=== PATIENT | female | born 1985 | race African-American/Black ===

== ENCOUNTER 2017-05-16 13:24 | Emergency (ER) ==
[2017-05-16 13:33] VITALS: TEMP 97.5; BMI 28.3
[2017-05-16] MEDS ORDERED: SODIUM CHLORIDE 1,000 ML IV STA (13:42)
--- NOTE | 2017-05-16 13:48 | ED.PDOC ---
General ED Provider: Dr. CONNIE REMY Chief Complaint: Dizziness Stated Complaint: Pateint states she started feeling bad the last two days. 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 states her hands were shaking. states her blood pressure was checked and it was high ( 140s systolic) . Also c/o headache. Time Seen by Physician: 13:38 Mode of Arrival: Walk-In Information Source: Patient Nursing and Triage Documentation Reviewed and Agree: Yes Review of Systems - Review Of Systems Constitutional: Reports: No symptoms Eyes: Reports: No symptoms Ears, Nose, Mouth, Throat: Reports: No symptoms Respiratory: Reports: No symptoms Cardiac: Reports: Lightheadedness GI: Reports: No symptoms : Reports: No symptoms Musculoskeletal: Reports: No symptoms Skin: Reports: No symptoms Neurological: Reports: Anxiety, Headache Endocrine: Reports: No symptoms Hematologic/Lymphatic: Reports: No symptoms All Other Systems: Reviewed and Negative Past Medical History - Past Medical History Endocrine: Reports: None Cardiovascular: Reports: None Respiratory: Reports: None Hematological: Reports: None Gastrointestinal: Reports: None Genitourinary: Reports: None Neuro/Psych: Reports: Depression Musculoskeletal: Reports: Arthritis, Back Pain Cancer: Reports: None Last Menstrual Period: 05/09/17 - Surgical History General Surgical History: Reports: None - Family History Family History: Reports: None - Social History Smoking Status: Never smoker Hx Substance Use: No Alcohol Screening: None Physical Exam - Physical Exam Appearance: Ill-appearing Ill-appearing: Mild Eyes: ALLEN, EOMI, Conjunctiva clear ENT: Ears normal, Nose normal, Oropharynx normal Neck: Supple Respiratory: Airway patent, Breath sounds clear, Breath sounds equal, Respirations nonlabored Cardiovascular: RRR, Pulses normal, No rub, No murmur GI/: Soft, Nontender, No masses, Bowel sounds normal, No Organomegaly Musculoskeletal: Normal strength, ROM intact, No edema, No calf tenderness Skin: Warm, Dry, Normal color Neurological: Sensation intact, Motor intact, Reflexes intact, Cranial nerves intact, Alert, Oriented Psychiatric: Anxious Interpretation - Radiology Interpretation Radiology Interpretation By: Radiologist Radiology Results: Negative Exam Interpreted: CT Scan (Head ) - EKG Interpretation Time of EKG #1: 13:42 Rate: Normal Rhythm: Sinus Ectopy: PVCs (occasional ) [place]: [place] Interpretation: sinus with occ PVC's Critical Care Note - Critical Care Note Total Time (mins): 10 Course - Course Hematology/Chemistry: 05/16/17 13:45 05/16/17 13:45 Orders, Labs, Meds: Lab Review 05/16/17 05/16/17 13:45 13:51 WBC 9.44 RBC 4.63 Hgb 12.3 Hct 38.0 MCV 82.1 MCH 26.6 L MCHC 32.4 RDW Coeff of Bill 14.4 Plt Count 358 Immature Gran % (Auto) 0.2 Neut % (Auto) 66.8 Lymph % (Auto) 24.0 [place] % (Auto) 7.3 Eos % (Auto) 1.0 Baso % (Auto) 0.7 Immature Gran # (Auto) 0.0 Neut # 6.3 Lymph # 2.3 [place] # 0.7 Eos # 0.1 Baso # 0.1 Sodium 140 Potassium 3.5 Chloride 107 Carbon Dioxide 25 Anion Gap 11.5 BUN 6 L Creatinine 0.74 Estimated GFR (MDRD) 93.00 BUN/Creatinine Ratio 8.10 Glucose 97 Calcium 8.8 Total Bilirubin 0.23 AST 14 L ALT 8 L Alkaline Phosphatase 71 Troponin I < 0.0100 Total Protein 7.1 Albumin 3.7 Globulin 3.4 Albumin/Globulin Ratio 1.09 Serum , Qual Negative Urine Color Yellow Urine Clarity Clear Urine pH 7.0 Ur Specific Rose 1.020 Urine Protein Negative Urine Glucose (UA) Negative Urine Ketones Negative Urine Blood Negative Urine Nitrite Negative Urine Bilirubin Negative Urine Urobilinogen 0.2 Ur Leukocyte Esterase Negative Orders Category Date Time Status EKG-(ED ONLY) Stat CARDIO 05/16/17 13:37 Completed ED IV/MEDIPORT/POWERPORT .ONCE EMERGENCY 05/16/17 13:42 Active ED ORTHOSTATIC VITAL SIGNS .ONCE EMERGENCY 05/16/17 13:37 Active CBC W/ AUTO DIFF Stat LAB 05/16/17 13:45 Completed COMPREHENSIVE METABOLIC PANEL Stat LAB 05/16/17 13:45 Completed SERUM Stat LAB 05/16/17 13:45 Completed TROPONIN I Stat LAB 05/16/17 13:45 Completed URINALYSIS C & S IF INDICATED Stat LAB 05/16/17 13:51 Completed 0.9 % Sodium Chloride [Saline Flush] MEDS 05/16/17 13:42 Discontinued 1 syr IVF PRN PRN Sodium Chloride 0.9% [Sodium Chloride] 1,000 ml MEDS 05/16/17 13:[address] HEAD W/O CONTRAST Stat RADS 05/16/17 13:41 Completed Medications Discontinued Medications Generic Name Dose Route Start Last Admin Trade Name Freq PRN Reason Stop Dose Admin Sodium Chloride 1,000 mls @ 1,000 mls/hr 05/16/17 13:42 05/16/17 14:02 Sodium Chloride IV 05/16/17 14:41 1,000 mls/hr BOLUS STA Administration Sodium Chloride 1 syr 05/16/17 13:42 05/16/17 14:02 Saline Flush IVF 1 syr PRN PRN Administration To flush IV Vital Signs: Temp Pulse Resp BP Pulse Ox 05/16/17 14:55 71 16 137/79 100 05/16/17 14:06 79 118/92 H 05/16/17 13:25 97.5 F L 85 16 149/91 H 99 Departure - Departure Time of Disposition: 14:46 Disposition: HOME SELF-CARE Discharge Problem: Dizziness Instructions: Lightheadedness (ED), Dizziness (ED) Condition: Good Pt referred to PMD for follow-up: Yes Additional Instructions: Push fluids Follow up with PCP in 3 days Allergies/Adverse Reactions: Allergies No Known Allergies Allergy (Unverified 05/16/17 13:29) Home Medications: Ambulatory Orders Trazodone HCl 75 mg PO BEDTIME PRN 05/10/16 Alprazolam 0.25 mg PO BID PRN 05/16/17 Gabapentin 100 mg PO TID 05/16/17 Hydrocodone/Acetaminophen [[place] 5-325 Tablet] 1 tab PO Q8H PRN 05/16/17 Methocarbamol 500 mg PO QID 05/16/17 Disposition Discussed With: Patient
[2017-05-16 13:58] LABS: BASOPHILS # (AUTO) 0.1 K/uL (0-0.2); BASOPHILS % (AUTO) 0.7 % (0.0-3.0); EOSINOPHILS # (AUTO) 0.1 K/ul (0.0-0.7); HEMOGLOBIN 12.3 g/dl (12.0-16.0); IMMATURE GRANULOCYTE % (AUTO) 0.2 % (0.0-5.0); LYMPHOCYTES # (AUTO) 2.3 K/uL (0.60-3.4); MEAN CORPUSCULAR HEMOGLOBIN 26.6 pg (27.0-31.0); MEAN CORPUSCULAR HGB CONC 32.4 (31.8-35.4); MEAN CORPUSCULAR VOLUME 82.1 fl (81.0-99.0); MONOCYTES # (AUTO) 0.7 K/uL (0.4-2.0); MONOCYTES % (AUTO) 7.3 (0-10); NEUTROPHILS # (AUTO) 6.3 K/ul (2.0-6.9); NEUTROPHILS % (AUTO) 66.8; PLATELET COUNT 358 10^3/uL (140-440); RED BLOOD COUNT 4.63 10^6/ul (4.20-5.40); WHITE BLOOD COUNT 9.44 K/ul (4.6-10.2)
[2017-05-16 14:01] LABS: BILIRUBIN,URINE Negative (NEGATIVE); KETONES,URINE Negative (NEGATIVE); LEUKOCYTE ESTERASE ,URINE Negative (NEGATIVE); NITRITE,URINE Negative (NEGATIVE); PROTEIN,URINE Negative (NEGATIVE); URINE, BLOOD Negative (NEGATIVE)
[2017-05-16 14:02] LABS: ADD URINE MICROSCOPIC NO
[2017-05-16 14:12] LABS: SERUM PREGNANCY INTERNAL QC INTERNAL QC VALID
[2017-05-16 14:18] LABS: ALANINE AMINOTRANSFERASE 8 U/L (12-78); ALBUMIN 3.7 g/dL (3.4-5.0); ALBUMIN/GLOBULIN RATIO 1.09; ALKALINE PHOSPHATASE 71 U/L (42-98); ANION GAP 11.5; ASPARTATE AMINO TRANSFERASE 14 U/L (15-37); BILIRUBIN,TOTAL 0.23 mg/dL (0.00-1.20); BLOOD UREA NITROGEN 6 mg/dL (7-18); CALCIUM 8.8 mg/dL (8.2-10.2); CARBON DIOXIDE 25 mmol/L (21-32); CHLORIDE 107 mmol/L (98-107); CREATININE 0.74 mg/dL (0.60-1.30); GLUCOSE 97 mg/dL (70-110); POTASSIUM 3.5 mmol/L (3.5-5.10); SODIUM 140 mmol/L (136-145); TOTAL PROTEIN 7.1 g/dL (6.4-8.2)
--- NOTE | 2017-05-16 14:38 | CT ---
EXAM: CT BRAIN HISTORY: Dizziness TECHNIQUE: CT brain without intravenous contrast. 5-mm axial sections with Reformations. COMPARISON: 08/08/2013 FINDINGS: Brain is unremarkable without distinct evidence of hemorrhage or large vessel distribution recent ischemic infarction. There is no suggestion of acute hydrocephalus or subdural fluid collection. N o mass or mass effect. Cranium is within normal limits. Mastoid air cells are aerated. The visualized paranasal sinuses are clear. IMPRESSION: No acute intracranial process.
[2017-05-16 14:56] VITALS: BP 137/79
== END 2017-05-16 15:07 | disposition home or self-care (01) ==
LOC: ED 13:24
DX: R42 Dizziness and giddiness (principal); R51 Headache; Z79.899 Other long term (current) drug therapy
CPT/HCPCS: 36415; 80053; 81001; 84484; 84703; 85025; 93005; 93010; 96360; 99283

== ENCOUNTER 2017-06-26 19:55 | Emergency (ER) ==
[2017-06-26 20:05] VITALS: BP 144/93; TEMP 97.9; BMI 28.7
[2017-06-26] MEDS: MORPHINE 4 MG/ML SYRINGE IM STA (20:14)
[2017-06-26] MEDS: ZOFRAN 4 MG/2 ML IM STA (20:15)
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
[2017-06-26] MEDS: SILVADENE CREAM TP STA (20:49)
== END 2017-06-26 20:52 | disposition home or self-care (01) ==
LOC: ED 19:55
DX: T23.102A Burn of first degree of left hand, unspecified site, initial encounter (principal); T23.172A Burn of first degree of left wrist, initial encounter; X08.8XXA Exposure to other specified smoke, fire and flames, initial encounter
CPT/HCPCS: 96372; 99283

== ENCOUNTER 2017-06-27 19:20 | Emergency (ER) ==
[2017-06-27 19:26] VITALS: BP 131/87; TEMP 99.2; BMI 28.9
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
== END 2017-06-27 19:36 | disposition home or self-care (01) ==
LOC: ED 19:20
DX: T22.10XD Burn of first degree of shoulder and upper limb, except wrist and hand, unspecified site, subsequent encounter (principal); T23.16 Burn of first degree of back of hand; X08.8XXD Exposure to other specified smoke, fire and flames, subsequent encounter
CPT/HCPCS: 99281